=== PATIENT | female | born 1965 | race Caucasian/White ===

== ENCOUNTER 2022-03-09 08:45 | Emergency (ER) | payer MEDICAID ==
[~2022-03-09] VITALS: Ht 152.4 cm; Wt 104.5 kg
[~2022-03-09 08:45] MED LIST: FENO54TA PO; OMEG1CAP54 PO; OMEP40CA21 PO; VITA200T6 PO
[2022-03-09 08:48] VITALS: BP 135/81
[2022-03-09] MEDS ORDERED: ondansetron 4mg rapidly disintigrating tab PO ONE (10:30)
[2022-03-09] MEDS ORDERED: METO-292 PO (12:14)
[2022-03-09] MEDS ORDERED: ONDA4TAB12 PO ×2 (12:14→12:15)
== END 2022-03-09 12:30 | disposition home or self-care (01) ==
LOC: ER 08:46
DX: B34.9 Viral infection, unspecified (principal); Z20.822 Contact with and (suspected) exposure to COVID-19; I10 Essential (primary) hypertension; K21.9 Gastro-esophageal reflux disease without esophagitis; Z88.0 Allergy status to penicillin; Z88.8 Allergy status to other drugs, medicaments and biological substances; Z91.018 Allergy to other foods; Z88.5 Allergy status to narcotic agent
CPT/HCPCS: 87502; 87503; 87635; 99283; C9803

== ENCOUNTER 2025-03-01 08:38 | Outpatient (CLI) | payer MEDICAID ==
[~2025-03-01 08:38] MED LIST changes: +METO-292 PO; +ONDA-243 PO
--- NOTE | 2025-03-01 11:27 | RADIOLOGY REPORT ---
Exam: CT CT ABDOMEN PELVIS History: DYSURIA Comparison Study: None Technique: Multidetector spiral CT of the abdomen and pelvis was performed from lung bases to pubic s ymphysis. Imaging was performed without intravenous contrast. Coronal and sagittal multiplanar reform ats were obtained from the axial data set by the technologist. Radiation Dose : 1. Abdomen/Pelvis: CTDIvol 36.3 mGy, DLP 1814.7 mGy*cm. Findings: Evaluation of vasculature and solid organs is limited due to lack of intravenous contrast use. Lung Bases: Lung bases are clear. Visualized portions of the heart and pericardium are unremarkable. Liver: The liver is normal in size. No focal lesions. Diffusely hypoattenuating liver parenchyma co nsistent with hepatic steatosis. Gallbladder and Biliary Tree: The gallbladder is surgically absent. No intrahepatic or extrahepatic b iliary ductal dilatation. Spleen: Unremarkable Pancreas: The pancreas is grossly unremarkable. Adrenal Glands: Unremarkable Kidneys: Kidneys are unremarkable without calculi or hydronephrosis. GI tract: The stomach is grossly normal in appearance. No evidence of small bowel wall thickening or abnormal dilatation to suggest bowel obstruction. The colon is unremarkable. The appendix is not visu alized. There surgical material of the base of the cecum. Peritoneum/mesentery/retroperitoneum. No evidence of free intraperitoneal air. No ascites. No evidenc e of suspicious lymphadenopathy. Abdominal Wall: Unremarkable. Vasculature: The visualized abdominal aorta is normal in size and caliber. Evaluation of abdominal a nd pelvic vessels is limited due to lack of intravenous contrast. There are atherosclerotic calcifica tions in the aorta. Urinary Bladder: Grossly unremarkable for degree of distention. Pelvic Organs: Unremarkable Musculoskeletal: No aggressive focal bony lesions, acute fractures or dislocation. 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 Bilateral neural foraminal stenosis at L5-S1. IMPRESSION: 1. No acute abdominal or pelvic findings. 2. Hepatic steatosis. 3. Cholecystectomy.
== END 2025-03-01 23:59 | disposition home or self-care (01) ==
LOC: RAD 08:38
PROVIDERS: ATTEND Nurse Practitioner
DX: K76.0 Fatty (change of) liver, not elsewhere classified (principal); R30.0 Dysuria; I70.0 Atherosclerosis of aorta; M51.379 Other intervertebral disc degeneration, lumbosacral region without mention of lumbar back pain or lower extremity pain; M48.07 Spinal stenosis, lumbosacral region; Z90.49 Acquired absence of other specified parts of digestive tract
CPT/HCPCS: 74176